=== PATIENT | female | born 1995 | race Caucasian/White ===

== ENCOUNTER 2016-09-21 13:22 | Emergency (ER) | payer OTHER ==
[~2016-09-21] VITALS: Ht 147.3 cm; Wt 52.6 kg
[2016-09-21 14:58] LABS: BASOPHIL % 0.6 % (0-2); PLATELET COUNT 231 x10^3mcL (130-400); RED CELL DISTRIBUTION WIDTH 15.7 % (11.5-14.5)
[2016-09-21 15:26] LABS: ALBUMIN 4.1 g/dL (3.4-5.0); ALKALINE PHOSPHATASE 72 U/L (46-116); ALT/SGPT 42 U/L (14-59); AST/SGOT 14 U/L (15-37); BILIRUBIN TOTAL 0.6 mg/dL (0.20-1.00); CALCIUM 9.2 mg/dL (8.5-10.1); CHLORIDE SERUM 103 mmol/L (98-107); GFR1 > 60 mL/min; GLUCOSE SERUM 88 mg/dL (74-106); TOTAL PROTEIN, SERUM 7.2 g/dL (6.4-8.2)
[2016-09-21 15:33] LABS: SODIUM SERUM 139 mmol/L (136-145)
[2016-09-21 15:36] LABS: C REACTIVE PROTEIN < 0.2 mg/dL (<=0.9); ERYTHROCYTE SED RATE 12 mm/hr (0-20)
[2016-09-21 15:38] LABS: POTASSIUM SERUM 2.8 mmol/L (3.5-5.1); T3 TOTAL 1.13 ng/mL
[2016-09-21 16:44] LABS: FREE THYROXINE INDEX 3.3 ug/dL (1.4-4.5); T4(THYROXINE) 9.4 ug/dL (4.7-13.3)
[2016-09-21 16:55] LABS: CK-MB 0.7 ng/mL (0-3.6)
[2016-09-21 17:26] VITALS: BP 106/61
== END 2016-09-21 17:26 | disposition home or self-care (01) ==
LOC: ED 13:22
PROVIDERS: Specialist
DX: M54.5 Low back pain (principal); M41.9 Scoliosis, unspecified; Z85.830 Personal history of malignant neoplasm of bone
CPT/HCPCS: 36600; 83880; 84439; J1170; J1200; J1885; J2405; J3010; J7030; Q0092; Q9967